=== PATIENT | female | born 1970 | race Caucasian/White ===

== ENCOUNTER 2016-10-02 19:26 | Outpatient (CLI) | payer MEDICARE, MEDICAID ==
--- NOTE | 2016-10-02 20:05 | RAD ---
THREE VIEWS OF THE RIGHT FOOT 10/02/16 HISTORY: Right foot swelling. FINDINGS/IMPRESSION: The Lisfranc joint is normally aligned. There is no evidence of a fracture, dislocation, or other os seous abnormality involving the right foot. POS: [facility]
== END 2016-10-02 19:27 | disposition home or self-care (01) ==
LOC: MADRAD 19:26
PROVIDERS: ATTEND General Practice
DX: L03.115 Cellulitis of right lower limb (principal)

== ENCOUNTER 2017-01-24 15:39 | Emergency (ER) | payer MEDICARE, OTHER ==
--- NOTE | 2017-01-24 16:36 | RAD ---
CHEST TWO VIEWS: Comparison: 03-02-13 History: Right chest pain. FINDINGS: There are dorsum column stimulators. Stable opacification of the right upper lobe. No new opacities are appreciated. Mild hyperinflation. No pleural effusion or pneumothorax. Normal cardiac silhouette . IMPRESSION: No acute cardiopulmonary process. POS: [facility]
== END 2017-01-24 16:55 | disposition home or self-care (01) ==
LOC: MADERS 15:39
DX: S29.011A Strain of muscle and tendon of front wall of thorax, initial encounter (principal); F41.9 Anxiety disorder, unspecified; F31.9 Bipolar disorder, unspecified; F43.10 Post-traumatic stress disorder, unspecified; F60.3 Borderline personality disorder; Z79.899 Other long term (current) drug therapy; X58.XXXA Exposure to other specified factors, initial encounter
CPT/HCPCS: 71020

== ENCOUNTER 2017-06-03 13:06 | Outpatient (CLI) | payer MEDICARE, OTHER ==
--- NOTE | 2017-06-03 15:12 | RAD ---
TWO VIEWS LEFT HIP: History: Left hip pain. FINDINGS: Two views of the left hip shows no evidence of acute fracture or dislocation. No degenerative change s are seen. IMPRESSION: No significant left hip abnormality. POS: [facility]
== END 2017-06-03 13:07 | disposition home or self-care (01) ==
LOC: MADRAD 13:06
PROVIDERS: ATTEND General Practice
DX: M25.552 Pain in left hip (principal)

== ENCOUNTER 2018-04-04 17:48 | Outpatient (CLI) | payer MEDICARE, MEDICAID ==
--- NOTE | 2018-04-04 18:15 | RAD ---
THREE VIEWS LEFT FOOT: Date: 04-04-18 Comparison: None. History: Pain and swelling for five days. FINDINGS: No displaced fracture or evidence of dislocation is noted. No radiopaque foreign body or subcutaneous gas. IMPRESSION: No acute osseous abnormality. POS: [facility]
== END 2018-04-04 17:49 | disposition home or self-care (01) ==
LOC: MADRAD 17:48
PROVIDERS: ATTEND General Practice
DX: M79.672 Pain in left foot (principal); M79.89 Other specified soft tissue disorders

== ENCOUNTER 2018-05-14 15:16 | Outpatient (CLI) | payer MEDICARE, MEDICAID ==
[2018-05-14 15:57] LABS: #Basophils 0.1 thou/uL (0.0-0.2); #Eosinphils 0.4 thou/uL (0.0-0.7); #Lymphocytes 3.3 thou/uL (1.20-3.40); #Monocytes 0.9 thou/uL (0.11-0.59); #Neutrophils 3.6 thou/uL (1.40-6.50); %Basophils 1.3 % (0.0-1.0); %Eosinophils 4.6 % (0.0-10.0); %Monocytes 10.5 % (0.0-10.0); %Neutrophils 43.7 % (42.0-75.0); Hemoglobin 10.8 g/dL (12.0-16.0); Mean Corpuscular HGB CONC 31.4 g/dL (32.0-36.0); Mean Corpuscular Hemoglobin 26.4 pg (27.0-31.0); Mean Platelet Volume 7.8 fL (7.4-10.4); Platelet Count 286 thou/uL (130-400); RBC Distribution Width 15.9 % (11.5-14.5); Red Blood Cell (RBC) Count 4.08 mill/uL (4.20-5.40); White Blood Cell (WBC) Count 8.2 thou/uL (4.8-10.8)
[2018-05-14 16:11] LABS: ALT (SGPT) 22 U/L (8-55); AST (SGOT) 15 U/L (5-34); Alkaline Phosphatase 118 U/L (40-150); Anion Gap 17 mmol/L (10-20); BUN (Urea Nitrogen) 15 mg/dL (7.0-18.7); Bilirubin, Total 0.3 mg/dL (0.2-1.2); Calc. Creatinine Clearance 0 mL/min (70-130); Calcium 9.2 mg/dL (7.8-10.44); Carbon Dioxide 21 mmol/L (22-29); Chloride 106 mmol/L (98-107); Estimated GFR-MDRD 62; Globulin 2.6 g/dL (2.4-3.5); Glucose 60 mg/dL (70-105); Potassium 4.2 mmol/L (3.5-5.1); Protein, Total 6.6 g/dL (6.0-8.3); Sodium 140 mmol/L (136-145)
--- NOTE | 2018-05-14 16:16 | RAD ---
ABDOMEN ONE VIEW: 05/14/18 HISTORY: Abdomen pain. FINDINGS: Large amount of stool throughout the colon and rectum. Small bowel gas pattern nonspecific. Hemidiaph ragms are excluded from the image. Extensive postoperative change of the abdomen and lumbar spine. Mu ltiple electronic devices and wires are visible. A thin oblique linear density projects over the cocc yx. Uncertain etiology. IMPRESSION: Constipation. Extensive postoperative and postprocedural changes. POS: [facility]
== END 2018-05-14 15:17 | disposition home or self-care (01) ==
LOC: MADRAD 15:16
PROVIDERS: ATTEND General Practice
DX: R10.30 Lower abdominal pain, unspecified (principal); F31.70 Bipolar disorder, currently in remission, most recent episode unspecified; K59.00 Constipation, unspecified; Z98.890 Other specified postprocedural states
CPT/HCPCS: 36415; 74018; 80053; 84443; 85025

== ENCOUNTER 2019-08-17 14:36 | Emergency (ER) | payer MEDICARE, MEDICAID ==
[~2019-08-17 14:36] MED LIST: Dextrose 5 %-0.45 % NaCl 1000 ml Bag ONE; Iopamidol 370 76% 100 ML VIAL ONE
[2019-08-17 15:49] LABS: Bilirubin Moderate (Negative); Blood, Urine Negative (Negative); Glucose, Urine (Dipstick) 100 mg/dL (Negative); Leukocyte Negative (Negative); Nitrite Positive (Negative); Protein, Urine (Dipstick) 30 mg/dL (Neg-Trace)
[2019-08-17 15:50] LABS: Clarity Hazy (Clear)
[2019-08-17 15:54] LABS: RBC/HPF 0-3 HPF (0-3)
[2019-08-17 15:55] LABS: Bacteria/HPF Rare-Few HPF (None Seen); Squamous Epithelial 0-3 HPF (0-3); WBC/HPF 0-3 HPF (0-3)
[2019-08-17 15:56] LABS: Mucous/LPF Rare LPF (<2+)
[2019-08-17 16:29] LABS: Amphetamine Not Detected (NotDetected); Barbiturates Screen Not Detected (NotDetected); Benzodiazepine Screen Detected (NotDetected); Cocaine Metabolite Screen Not Detected (NotDetected); Medtox Control Line Valid? VALID (VALID); Methadone Not Detected (NotDetected); Methamphetamine Detected (NotDetected); Opiate Screen Detected (NotDetected); Oxycodone Screen Not Detected (NotDetected); Phencyclidine (PCP) Not Detected (NotDetected); THC/Cannabinoid Screen Not Detected (NotDetected); Tricyclic Screen Detected (NotDetected)
[2019-08-17 16:40] LABS: #Basophils 0.1 thou/uL (0.0-0.2); #Eosinphils 0.1 thou/uL (0.0-0.7); #Lymphocytes 0.7 thou/uL (1.20-3.40); #Monocytes 0.5 thou/uL (0.11-0.59); #Neutrophils 4.1 thou/uL (1.40-6.50); %Eosinophils 2.6 % (0.0-10.0); %Lymphocytes 12.8 % (21.0-51.0); %Monocytes 8.7 % (0.0-10.0); %Neutrophils 74.9 % (42.0-75.0); Hypochromia SLIGHT = 6-15 cells (100X) (0-5/hpf); MDiff Complete? YES; Mean Corpuscular HGB CONC 29.6 g/dL (32.0-36.0); Mean Corpuscular Hemoglobin 29.2 pg (27.0-31.0); Mean Corpuscular Volume 98.4 fL (78.0-98.0); Mean Platelet Volume 8.3 fL (7.4-10.4); Platelet Count 199 thou/uL (130-400); Platelet Morphology Comment Appears Adequate; RBC Distribution Width 13.2 % (11.5-14.5); White Blood Cell (WBC) Count 5.5 thou/uL (4.8-10.8)
[2019-08-17 16:53] LABS: ALT (SGPT) 284 U/L (8-55); AST (SGOT) 130 U/L (5-34); Albumin 3.9 g/dL (3.5-5.0); Alcohol Less than 10 mg/dL (Less than 10); Alkaline Phosphatase 279 U/L (40-110); Anion Gap 17 mmol/L (10-20); BUN (Urea Nitrogen) 27 mg/dL (7.0-18.7); Bilirubin, Total 0.6 mg/dL (0.2-1.2); CRP (Inflammatory) 19.26 mg/dL (= or < 0.5); Calc. Creatinine Clearance 0 mL/min (70-130); Calcium 9.5 mg/dL (7.8-10.44); Carbon Dioxide 22 mmol/L (22-29); Chloride 102 mmol/L (98-107); Estimated GFR-MDRD 56; Globulin 2.8 g/dL (2.4-3.5); Glucose 77 mg/dL (70-105); Lipase 24 U/L (8-78); Potassium 4.8 mmol/L (3.5-5.1); Protein, Total 6.7 g/dL (6.0-8.3); Sodium 136 mmol/L (136-145)
[2019-08-17] MEDS ORDERED: cefTRIAXone\\ROCEPHIN 1 GM VIAL ONE (17:20)
[2019-08-17] MEDS ORDERED: Lidocaine 1% 20 ML MDV ONE (17:21)
--- NOTE | 2019-08-17 19:58 | RAD ---
Exam: Chest one view abdomen 2 views: HISTORY: Pain Chest one view: Implantable leads overlie the left chest and also called stimulator leads overlie the lower thoracic spine. Heart size is normal. Patchy alveolar parenchymal changes in the right upper lobe which are overall stable from prior study, 01/24/2017. Minimal increased markings in the left chest, overall sta ble. Abdomen 2 views: Extensive postop changes the lumbar spine. Right and left-sided implantable devices. Abnormally dilat ed small bowel loops with some air-fluid levels concerning for small bowel obstruction. Moderate gas and solid fecal material throughout the colon and minimally dilated rectum evidence for some cons tipation. IMPRESSION: Evidence for small bowel obstruction with solid fecal material throughout the colon and dilated rectu m. Stable chronic changes in the right upper lobe of the lung. No free intraperitoneal air or overt calculus.
[2019-08-17] MEDS ORDERED: ceFOXitin 1 GM VIAL ONE (20:22)
[2019-08-17 21:26] LABS: BHCG - Serum Negative (NEGATIVE); Pregs Control Background? CLEAR/WHITE (CLR/WHITE); Pregs Control Bar Appear? YES (CONTROL BAR)
--- NOTE | 2019-08-18 | CT ---
EXAM: Abdomen and pelvic CT scan with contrast: HISTORY: Abdominal pain COMPARISON: 02/21/2011 FINDINGS: . Some very subtle patchy groundglass opacity changes in both visualized lungs, nonspecific. Liver: Unremarkable. Gallbladder:Status post cholecystectomy with some dilatation of the common bile duct and mild central intrahepatic ductal dilatation. Extensive postoperative changes of the stomach with what appears to be an excluded portion of the sto mach which has an air-fluid level within it measuring approximately 5 x 7 cm in size. There are abnormally dilated loops of small bowel. There is very extensive solid fecal material throughout the colon particularly the sigmoid colon and rectum with marked dilatation and dilatation marked dilatation and distention of the rectum with solid fecal material evidence for significant constipati on. Extensive postop changes of the lumbar spine. No evidence evidence for renal calculus or acute obstruction. The visualized pancreas and spleen and adrenal glands are unremarkable. No CT evidenc e for acute appendicitis. No free intraperitoneal fluid. IMPRESSION: Abnormally dilated loops of small bowel concerning for small bowel obstruction. Very extensive solid fecal material within the colon including a dilated fecal filled rectum evidence for obstipation. Postop changes of the stomach with what appears to be an excluded portion of the stomach with an air- fluid level within it which is somewhat more prominent and more distended than seen on the prior 2010 study. Extensive postoperative changes of the lumbar spine with multiple implantable devices. Subtle bilateral pulmonary groundglass opacity changes, nonspecific, this could represent very subtle pneumonitis or could be related to chronic change.
[2019-08-18] MEDS ORDERED: Morphine 10 MG/ML VIAL ONE (01:35)
== END 2019-08-18 01:45 | disposition short-term general hospital (02) ==
LOC: MADERS 14:36
DX: N39.0 Urinary tract infection, site not specified (principal); K56.699 Other intestinal obstruction unspecified as to partial versus complete obstruction; K59.00 Constipation, unspecified; F15.10 Other stimulant abuse, uncomplicated; F41.9 Anxiety disorder, unspecified; F31.9 Bipolar disorder, unspecified; F43.10 Post-traumatic stress disorder, unspecified; Z79.899 Other long term (current) drug therapy
CPT/HCPCS: 36415; 43752; 74022; 74177; 80053; 80306; 80307; 81003; 81015; 82150; 83690; 84484; 84703; 85025; 86140; 87086; 94760; 96361; 96365; 96372; 96375; J0694; J0696; J2001; J2270; J7042; J7050; Q9967

== ENCOUNTER 2020-01-27 19:50 | Emergency (ER) | payer MEDICARE, MEDICAID ==
[2020-01-27] MEDS ORDERED: Adacel (T-DAP) 0.5 ML SYRINGE ONE (20:17)
--- NOTE | 2020-01-27 20:30 | RAD ---
RADIOGRAPH LEFT HIP TWO VIEWS: 01/27/20 HISTORY: 49-year-old female with left hip pain. COMPARISON: 06/03/17. FINDINGS: There is mild bony hypertrophy of the acetabular roof. The femoral head contour is maintained. Hip partha int space is maintained. No subcapital osteophytes. Pedicle screws at lumbosacral junction. No fractu re. No interval change. IMPRESSION: 1. Minimal osteoarthrosis of the left hip. 2. Hardware at lower lumbar spine and lumbosacral junction. 3. No interval change since 06/16/17. POS: [facility]
--- NOTE | 2020-01-27 20:35 | RAD ---
RADIOGRAPH PELVIS ONE VIEW: 01/27/20 at 8:26 p.m. HISTORY: 49-year-old female with pelvic pain. FINDINGS: There are bilateral pedicle screws and laminectomy defect at lower lumbar spine. Surgical clip in the right hemipelvis. Generators overlie the soft tissues just superior to the bilateral iliac crests. P elvic ring appears to be grossly intact. Mild DJD of right hip and minimal DJD of left hip. No acute fracture identified. IMPRESSION: 1. Pedicle screws and laminectomy at lower lumbar spine. 2. No grossly displaced fracture or disruption of the pelvic ring. POS: [facility]
--- NOTE | 2020-01-27 20:36 | RAD ---
RIGHT KNEE FOUR VIEWS: 01/27/20 HISTORY: Right knee pain. FINDINGS/IMPRESSION: No fracture, dislocation, or bony destruction is seen. No joint effusion is identified. POS: [facility]
--- NOTE | 2020-01-27 20:37 | RAD ---
RIGHT ANKLE THREE VIEWS: 01/27/20 HISTORY: Injury, right ankle pain. FINDINGS/IMPRESSION: Soft tissue swelling is present. The ankle mortise is maintained. A fracture of the medial malleolus is seen without significant displacement. POS: [facility]
== END 2020-01-27 21:19 | disposition home or self-care (01) ==
LOC: MADERS 19:50
DX: S82.51XA Displaced fracture of medial malleolus of right tibia, initial encounter for closed fracture (principal); S80.01XA Contusion of right knee, initial encounter; S80.11XA Contusion of right lower leg, initial encounter; G89.29 Other chronic pain; F41.9 Anxiety disorder, unspecified; F31.9 Bipolar disorder, unspecified; F43.10 Post-traumatic stress disorder, unspecified; Z79.899 Other long term (current) drug therapy
CPT/HCPCS: 72170; 90471; 90715

== ENCOUNTER 2020-12-22 13:44 | Emergency (ER) | payer MEDICARE, OTHER ==
[~2020-12-22 13:44] MED LIST changes: -Dextrose 5 %-0.45 % NaCl 1000 ml Bag ONE; -Iopamidol 370 76% 100 ML VIAL ONE; +Iopamidol 370 76% 125 ML VIAL FS ONE; +Sodium Chloride 0.9% 1,000 ML BAG ONE; +Sodium Chloride 0.9% 100 ML BAG ONE
[2020-12-22] MEDS ORDERED: Fentanyl 100 MCG/2 ML VIAL ONE (15:00)
[2020-12-22 15:15] LABS: #Basophils 0.1 thou/uL (0.0-0.2); #Eosinphils 0.3 thou/uL (0.0-0.7); #Monocytes 0.8 thou/uL (0.11-0.59); #Neutrophils 5.3 thou/uL (1.40-6.50); %Basophils 1.1 % (0.0-1.0); %Eosinophils 3.8 % (0.0-10.0); %Lymphocytes 22.9 % (21.0-51.0); %Monocytes 9.7 % (0.0-10.0); %Neutrophils 62.5 % (42.0-75.0); Hemoglobin 10.6 g/dL (12.0-16.0); Mean Corpuscular HGB CONC 31.4 g/dL (32.0-36.0); Mean Corpuscular Hemoglobin 30.4 pg (27.0-31.0); Mean Corpuscular Volume 97.1 fL (78.0-98.0); Mean Platelet Volume 7.8 fL (7.4-10.4); Platelet Count 251 thou/uL (130-400); RBC Distribution Width 14.2 % (11.5-14.5); Red Blood Cell (RBC) Count 3.48 mill/uL (4.20-5.40); White Blood Cell (WBC) Count 8.5 thou/uL (4.8-10.8)
[2020-12-22 15:33] LABS: ALT (SGPT) 9 U/L (8-55); AST (SGOT) 7 U/L (5-34); Albumin 3.2 g/dL (3.5-5.0); Alkaline Phosphatase 81 U/L (40-110); Anion Gap 14 mmol/L (10-20); BUN (Urea Nitrogen) 15 mg/dL (7.0-18.7); Bilirubin, Total 0.3 mg/dL (0.2-1.2); Calc. Creatinine Clearance 0 mL/min (70-130); Calcium 8.2 mg/dL (7.8-10.44); Carbon Dioxide 18 mmol/L (22-29); Chloride 113 mmol/L (98-107); Globulin 2.5 g/dL (2.4-3.5); Glucose 87 mg/dL (70-105); Potassium 4.4 mmol/L (3.5-5.1); Protein, Total 5.7 g/dL (6.0-8.3); Sodium 141 mmol/L (136-145)
[2020-12-22] MEDS ORDERED: cefTRIAXone\\ROCEPHIN 1 GM VIAL ONE (17:12)
[2020-12-22] MEDS ORDERED: Ketorolac Tromethamine 30 MG/ML VIAL ONE (17:30)
== END 2020-12-22 18:42 | disposition home or self-care (01) ==
LOC: MADERS 13:44
DX: J18.9 Pneumonia, unspecified organism (principal); R55 Syncope and collapse; M25.511 Pain in right shoulder; M25.512 Pain in left shoulder; Z79.899 Other long term (current) drug therapy
CPT/HCPCS: 36415; 71046; 71275; 80053; 83880; 84484; 85025; 85379; 87040; 93005; 94760; 96365; 96375; J0696; J1885; J3010; J3490; J7050; Q9967

== ENCOUNTER 2021-02-05 11:45 | Outpatient (CLI) | payer MEDICARE, OTHER | END 2021-02-05 11:46 | disposition home or self-care (01) | LOC: MADRAD 11:45 | PROVIDERS: ATTEND Family Medicine | DX: J18.9 Pneumonia, unspecified organism (principal) | CPT/HCPCS: 71046 ==

== ENCOUNTER 2022-03-21 14:28 | Emergency (ER) | payer MEDICARE, OTHER ==
[2022-03-21 15:44] LABS: ALT (SGPT) 14 U/L (8-55); AST (SGOT) 15 U/L (5-34); Albumin 3.3 g/dL (3.5-5.0); Alkaline Phosphatase 78 U/L (40-110); Anion Gap 16 mmol/L (10-20); BUN (Urea Nitrogen) 9 mg/dL (9.8-20.1); Bilirubin, Total 0.2 mg/dL (0.2-1.2); Calc. Creatinine Clearance 0 mL/min (70-130); Calcium 8.1 mg/dL (7.8-10.44); Carbon Dioxide 21 mmol/L (22-29); Chloride 106 mmol/L (98-107); Globulin 2.6 g/dL (2.4-3.5); Glucose 91 mg/dL (70-105); Lipase 16 U/L (8-78); Magnesium 1.3 mg/dL (1.6-2.6); Potassium 3.6 mmol/L (3.5-5.1); Protein, Total 5.9 g/dL (6.0-8.3); Sodium 139 mmol/L (136-145)
[2022-03-21 15:45] LABS: #Basophils 0.1 thou/uL (0.0-0.2); #Eosinphils 0.1 thou/uL (0.0-0.7); #Lymphocytes 1.2 thou/uL (1.20-3.40); #Monocytes 0.5 thou/uL (0.11-0.59); #Neutrophils 2.1 thou/uL (1.40-6.50); %Basophils 1.5 % (0.0-1.0); %Eosinophils 2.6 % (0.0-10.0); %Monocytes 12.6 % (0.0-10.0); %Neutrophils 52.3 % (42.0-75.0); Hemoglobin 12.3 g/dL (12.0-16.0); Hypochromia SLIGHT = 6-15 cells (100X) (0-5/hpf); MDiff Complete? YES; Mean Corpuscular HGB CONC 31.9 g/dL (32.0-36.0); Mean Corpuscular Hemoglobin 32.2 pg (27.0-31.0); Mean Corpuscular Volume 100.9 fL (78.0-98.0); Mean Platelet Volume 12.1 fL (7.4-10.4); Platelet Count 108 thou/uL (130-400); Platelet Morphology Comment Appears Decreased; RBC Distribution Width 12.3 % (11.5-14.5); Red Blood Cell (RBC) Count 3.84 mill/uL (4.20-5.40)
[2022-03-21] MEDS ORDERED: Sodium Chloride 0.9% 100 ML ONE (17:12)
[2022-03-21] MEDS ORDERED: cefTRIAXone\\ROCEPHIN 1 GM VIAL ONE (17:12)
[2022-03-21 18:13] LABS: SARS-CoV-2 NAA Rapid Test DETECTED (NotDetected)
[2022-03-21] MEDS ORDERED: Azithromycin 250 MG TAB ONE (18:50)
[2022-03-21] MEDS ORDERED: Sodium Chloride 0.9% 250 ML 250 ML ONE (18:52)
[2022-03-21] MEDS ORDERED: Azithromycin 500 MG VIAL ONE (18:52)
== END 2022-03-21 20:18 | disposition short-term general hospital (02) ==
LOC: MADERS 14:28
DX: U07.1 COVID-19 (principal); J12.82 Pneumonia due to coronavirus disease 2019; J98.01 Acute bronchospasm
CPT/HCPCS: 36415; 71045; 80053; 83605; 83690; 83735; 83880; 84484; 85025; 85379; 87040; 96365; 96367; J0456; J0696; J3490; J7050; J7620; U0002

== ENCOUNTER 2022-07-30 15:38 | Emergency (ER) | payer MEDICARE, OTHER ==
[2022-07-30 16:45] LABS: ALT (SGPT) 19 U/L (8-55); AST (SGOT) 12 U/L (5-34); Albumin 3.1 g/dL (3.5-5.0); Alkaline Phosphatase 90 U/L (40-110); Anion Gap 15 mmol/L (10-20); BUN (Urea Nitrogen) 8 mg/dL (9.8-20.1); Bilirubin, Total 0.2 mg/dL (0.2-1.2); Calc. Creatinine Clearance 0 mL/min (70-130); Calcium 8.3 mg/dL (7.8-10.44); Carbon Dioxide 25 mmol/L (22-29); Chloride 105 mmol/L (98-107); Estimated GFR 107; Globulin 1.9 g/dL (2.4-3.5); Glucose 84 mg/dL (70-105); Lipase 12 U/L (8-78); Potassium 3.9 mmol/L (3.5-5.1); Sodium 141 mmol/L (136-145)
[2022-07-30 16:48] LABS: Eosinophils 2 % (0-10); Hemoglobin 11.8 g/dL (12.0-16.0); Lymphocytes 23 % (21-51); MDiff Complete? YES; Mean Corpuscular HGB CONC 33.1 g/dL (32.0-36.0); Mean Corpuscular Hemoglobin 32.9 pg (27.0-31.0); Mean Corpuscular Volume 99.7 fl (78.0-98.0); Mean Platelet Volume 8.5 fL (7.4-10.4); Monocytes 3 % (0-10); Neutrophil 63 % (42-75); Platelet Count 223 thou/uL (130-400); Platelet Morphology Comment Appears Adequate; RBC Distribution Width 11.5 % (11.5-14.5); Reactive Lymphocytes 9 % (0-10); Red Blood Cell (RBC) Count 3.59 mill/uL (4.20-5.40); White Blood Cell (WBC) Count 6.2 thou/uL (4.8-10.8)
[2022-07-30 16:56] LABS: Bilirubin Negative (Negative); Blood, Urine Negative (Negative); Clarity Clear (Clear); Glucose, Urine (Dipstick) Negative (Negative); Ketone, Urine Negative (Negative); Leukocyte Negative (Negative); Nitrite Negative (Negative); Protein, Urine (Dipstick) Negative (Neg-Trace); Specific Gravity, Urine 1.015 (1.005-1.030); Urobilinogen 0.2 mg/dL (Less than 2)
[2022-07-30 17:09] LABS: Amphetamine Not Detected (NotDetected); Barbiturates Screen Not Detected (NotDetected); Benzodiazepine Screen Detected (NotDetected); Cocaine Metabolite Screen Not Detected (NotDetected); Medtox Control Line Valid? VALID (VALID); Methadone Not Detected (NotDetected); Methamphetamine Not Detected (NotDetected); Opiate Screen Detected (NotDetected); Oxycodone Screen Not Detected (NotDetected); Phencyclidine (PCP) Not Detected (NotDetected); THC/Cannabinoid Screen Not Detected (NotDetected); Tricyclic Screen Not Detected (NotDetected)
== END 2022-07-30 17:28 | disposition home or self-care (01) ==
LOC: MADERS 15:38
DX: K59.00 Constipation, unspecified (principal)
CPT/HCPCS: 36415; 74177; 80053; 80306; 81003; 83690; 85025

== ENCOUNTER 2023-12-12 15:49 | Emergency (ER) | payer MEDICARE, OTHER ==
[2023-12-12] MEDS ORDERED: Morphine 4 MG/ML VIAL ONE (16:19)
[2023-12-12] MEDS ORDERED: Boostrix 0.5 ML (Tdap) VIAL (>/=7 yrs of age) ONE (16:20)
[2023-12-12 16:45] LABS: #Basophils 0.1 thou/uL (0.0-0.2); #Eosinphils 0.4 thou/uL (0.0-0.7); #Lymphocytes 1.7 thou/uL (1.20-3.40); #Monocytes 0.5 thou/uL (0.11-0.59); #Neutrophils 8.7 thou/uL (1.40-6.50); %Eosinophils 3.2 % (0.0-10.0); %Lymphocytes 14.7 % (21.0-51.0); %Neutrophils 77.2 % (42.0-75.0); Hematocrit 40.6 % (36.0-47.0); Hemoglobin 12.9 g/dL (12.0-16.0); INR-International Normal Ratio 0.9; Mean Corpuscular HGB CONC 31.7 g/dL (32.0-36.0); Mean Corpuscular Hemoglobin 32.6 pg (27.0-31.0); Mean Corpuscular Volume 102.6 fl (78.0-98.0); Mean Platelet Volume 7.4 fL (7.4-10.4); Platelet Count 267 10x3/uL (130-400); Prothrombin Time 11.9 sec (12.0-14.7); RBC Distribution Width 14.7 % (11.5-14.5); Red Blood Cell (RBC) Count 3.95 mill/uL (4.20-5.40); White Blood Cell (WBC) Count 11.3 10x3/uL (4.8-10.8)
[2023-12-12 16:46] LABS: PTT 25.5 sec (22.9-36.1)
[2023-12-12 16:54] LABS: ALT (SGPT) 13 U/L (8-55); AST (SGOT) 15 U/L (5-34); Alkaline Phosphatase 82 U/L (40-110); Anion Gap 14 mmol/L (10-20); BUN (Urea Nitrogen) 8 mg/dL (9.8-20.1); Bilirubin, Total 0.2 mg/dL (0.2-1.2); Calc. Creatinine Clearance 0 mL/min (70-130); Calcium 9.1 mg/dL (7.8-10.44); Carbon Dioxide 25 mmol/L (22-29); Chloride 107 mmol/L (98-107); Estimated GFR 97; Globulin 2.9 g/dL (2.4-3.5); Glucose 91 mg/dL (70-105); Potassium 3.8 mmol/L (3.5-5.1); Protein, Total 6.9 g/dL (6.0-8.3); Sodium 142 mmol/L (136-145)
[2023-12-12] MEDS ORDERED: fentaNYL 50 mcg/mL 1 mL Vial ONE (17:28)
== END 2023-12-12 17:32 | disposition short-term general hospital (02) ==
LOC: MADERS 15:49
DX: S72.032A Displaced midcervical fracture of left femur, initial encounter for closed fracture (principal); K21.9 Gastro-esophageal reflux disease without esophagitis; W01.0XXA Fall on same level from slipping, tripping and stumbling without subsequent striking against object, initial encounter; Z79.01 Long term (current) use of anticoagulants
CPT/HCPCS: 72170; 73502; 80053; 85025; 85610; 85730; 90715; 94760; J3010; 36415; 90471; 96374; 96375; J2270

== ENCOUNTER 2024-11-16 15:03 | Emergency (ER) | payer MEDICARE, OTHER, MEDICAID ==
[2024-11-16] MEDS ORDERED: Ketorolac Tromethamine 30 MG (1 mL) VIAL ONE (15:46)
== END 2024-11-16 16:05 | disposition home or self-care (01) ==
LOC: MADERS 15:03
DX: S62.306A Unspecified fracture of fifth metacarpal bone, right hand, initial encounter for closed fracture (principal); K21.9 Gastro-esophageal reflux disease without esophagitis; F41.9 Anxiety disorder, unspecified; F43.10 Post-traumatic stress disorder, unspecified; X58.XXXA Exposure to other specified factors, initial encounter; Z79.899 Other long term (current) drug therapy
CPT/HCPCS: 96372; 99282; J1885

== ENCOUNTER 2025-07-31 14:23 | Emergency (ER) | payer MEDICARE, MEDICAID | END 2025-07-31 15:33 | disposition home or self-care (01) | LOC: MADERS 14:23 | DX: S83.92XA Sprain of unspecified site of left knee, initial encounter (principal); W01.0XXA Fall on same level from slipping, tripping and stumbling without subsequent striking against object, initial encounter; K21.9 Gastro-esophageal reflux disease without esophagitis; F17.210 Nicotine dependence, cigarettes, uncomplicated; Z79.899 Other long term (current) drug therapy | CPT/HCPCS: 99283 ==